=== PATIENT | male | born 1955 | race Caucasian/White ===

== ENCOUNTER → 2018-10-31 | Outpatient (CLI) | payer OTHER ==
[~2018-10-31] MED LIST: REGADENOSON 0.4 MG/5 ML SYRINGE ONE
== END | disposition home or self-care (01) ==
LOC: CFH 06:49
PROVIDERS: ATTEND Internal Medicine Cardiovascular Disease
DX: I08.1 Rheumatic disorders of both mitral and tricuspid valves (principal); I48.91 Unspecified atrial fibrillation; R06.02 Shortness of breath; I10 Essential (primary) hypertension; E78.5 Hyperlipidemia, unspecified; E11.9 Type 2 diabetes mellitus without complications; Z79.01 Long term (current) use of anticoagulants; Z85.72 Personal history of non-Hodgkin lymphomas
CPT/HCPCS: 78452; 93017; 93306; A9502; J2785

== ENCOUNTER 2018-12-05 10:15 | Day surgery (SDC) | payer OTHER ==
[~2018-12-05] VITALS: Ht 175.3 cm; Wt 113.6 kg
[2018-12-05 11:01] VITALS: BP 113/70
[2018-12-05] MEDS ORDERED: APIX5TAB PO (11:05)
[2018-12-05] MEDS ORDERED: ATOR40TA78 PO (11:05)
[2018-12-05] MEDS ORDERED: LOSA100T14 PO (11:05)
[2018-12-05] MEDS ORDERED: TRIA1TAB3 PO (11:05)
[2018-12-05] MEDS ORDERED: METF500T27 PO (11:05)
[2018-12-05] MEDS ORDERED: METO25TA91 PO (11:05)
[2018-12-05] MEDS ORDERED: MULT-751 PO (11:07)
[2018-12-05] MEDS ORDERED: UBID100C41 PO (11:07)
[2018-12-05] MEDS ORDERED: FLUT9.9S16 INH (11:07)
[2018-12-05] MEDS ORDERED: CHOL40002 PO (11:07)
[2018-12-05] MEDS ORDERED: VITA1CAP PO (11:07)
[2018-12-05 11:38] LABS: BASOPHILS # (AUTO) 0.03 x10^3/uL (0-0.1); BASOPHILS % (AUTO) 1 % (0-1); EOSINOPHILS % (AUTO) 7 % (1-7); LYMPHOCYTES # (AUTO) 1.98 x10^3/uL (1-3.4); LYMPHOCYTES % (AUTO) 32 % (22-44); MD NO; MEAN CORPUSCULAR HEMOGLOBIN 30.5 pg (27.5-34.5); MEAN CORPUSCULAR HGB CONC 33.1 g/dL (33.2-36.2); MONOCYTES # (AUTO) 0.61 x10^3/uL (0.2-0.8); MONOCYTES % (AUTO) 10 % (2-9); NEUTROPHILS # (AUTO) 3.14 x10^3/uL (1.8-6.8); NEUTROPHILS % (AUTO) 51 % (42-75); PLATELET COUNT 221 x10^3/uL (130-400); RED BLOOD COUNT 4.95 x10^6/uL (4.38-5.82); RED CELL DISTRIBUTION WIDTH 13.2 % (9.4-14.8)
[2018-12-05 11:48] LABS: ANION GAP 8 mmol/L (5-15); CALCIUM 8.9 mg/dL (8.5-10.1); CHLORIDE 111 mmol/L (98-107); CREATININE 1.26 mg/dL (0.7-1.3)
[2018-12-05] MEDS ORDERED: PROPOFOL 10 MG/ML, 20ML ONE (12:47)
== END 2018-12-05 13:55 | disposition home or self-care (01) ==
LOC: CACL 10:15
PROVIDERS: ATTEND Internal Medicine Cardiovascular Disease
DX: I48.91 Unspecified atrial fibrillation (principal); I10 Essential (primary) hypertension; E11.42 Type 2 diabetes mellitus with diabetic polyneuropathy; E78.00 Pure hypercholesterolemia, unspecified; G47.33 Obstructive sleep apnea (adult) (pediatric); E66.9 Obesity, unspecified; Z68.37 Body mass index [BMI] 37.0-37.9, adult; Z79.01 Long term (current) use of anticoagulants; Z79.84 Long term (current) use of oral hypoglycemic drugs; Z79.899 Other long term (current) drug therapy; Z92.21 Personal history of antineoplastic chemotherapy; Z92.3 Personal history of irradiation; Z85.72 Personal history of non-Hodgkin lymphomas; Z82.49 Family history of ischemic heart disease and other diseases of the circulatory system
CPT/HCPCS: 36415; 80048; 85025; 92960; 93005; J2704